=== PATIENT | male | born 2000 | race Caucasian/White ===

== ENCOUNTER 2020-07-16 15:09 | Day surgery (SDC) | payer SELFPAY ==
[2020-07-16] MEDS ORDERED: Sodium Chloride 0.9% 10 ML Syringe FLUSH PRN (15:37)
[2020-07-16] MEDS ORDERED: cefOXitin 2 GM in Premix Bag 1 BAG IV SCH (15:37)
[2020-07-16] MEDS ORDERED: Sodium Chloride 0.9% 10 ML SDV IV PRN (15:37)
[2020-07-16] MEDS ORDERED: Sodium Chloride 0.9% 2.5 ML Syringe FLUSH PRN (15:37)
[2020-07-16] MEDS ORDERED: Lactated Ringers 1,000 ML IV SCH (15:45)
[2020-07-16] MEDS ORDERED: Propofol 200 MG/20 ML SDV ONE (15:45)
[2020-07-16] MEDS ORDERED: Midazolam 1 MG/ML 2 ML SDV ONE (15:45)
[2020-07-16] MEDS ORDERED: fentaNYL 100 MCG/2 ML SDV ONE (15:45)
[2020-07-16] MEDS ORDERED: cefOXitin 1 GM Vial ONE (15:58)
[2020-07-16] MEDS ORDERED: Sodium Chloride 0.9% 20 ML ONE (15:58)
--- NOTE | 2020-07-16 16:46 | PCM.OPNOTE ---
- General Post-Op/Procedure Note Date of Surgery/Procedure: 07/16/20 Operative Procedure(s): Incision and drainage left anterior perianal abscess Findings: 3 x 2 x 1 cm perianal abscess on the left anterior anoderm. No evidence of a fistula Pre Op Diagnosis: Perianal abscess Post-Op Diagnosis: same Anesthesia Technique: General LMA Primary Surgeon: Genia Morales Output, Urine Amount: 800 EBL in mLs: 5 Condition: Good
--- NOTE | 2020-07-16 16:56 | PCM.PREANE ---
Preanesthetic Assessment - Anesthesia/Transfusion/Family Hx Anesthesia History: Prior Anesthesia Without Reaction Family History of Anesthesia Reaction: No Transfusion History: No Prior Transfusion(s) - Physical Assessment NPO Status Date: 07/16/20 NPO Status Time: 00:05 Vital Signs: Last Vital Signs Temp 36.7 C 07/16/20 15:05 Pulse 85 07/16/20 15:05 Resp 16 07/16/20 15:05 BP 142/74 H 07/16/20 15:05 Pulse Ox 96 07/16/20 15:05 Height: 1.68 m Weight: 100.698 kg ASA Class: 1 - Lab Values: Laboratory Last Values SARS-CoV-2 RNA (LEXY) NEGATIVE (NEGATIVE) 07/16/20 15:20 - Allergies Allergies/Adverse Reactions: Allergies Allergy/AdvReac Type Severity Reaction Status Date / Time No Known Allergies Allergy Verified 07/16/20 15:37 - Acknowledgements Anesthesia Type Planned: General Anesthesia Pt an Appropriate Candidate for the Planned Anesthesia: Yes Alternatives and Risks of Anesthesia Discussed w Pt/Guardian: Yes Pt/Guardian Understands and Agrees with Anesthesia Plan: Yes PreAnesthesia Questionnaire Gastrointestinal History: Reports: GERD Endocrine/Metabolic History: Reports: Obesity/BMI 30+ - Past Surgical History Head Surgeries/Procedures: Reports: None HEENT Surgical History: Reports: Tonsillectomy, Other (See Below) Other HEENT Surgeries/Procedures: Left Tympanoplasty - SUBSTANCE USE Tobacco Use Status *Q: Current Every Day Tobacco User Tobacco Use Within Last Twelve Months: Snuff/Dip Recreational Drug Use History: No - HOME MEDS Home Medications: Home Meds Famotidine [Pepcid AC] 20 mg PO DAILY PRN 07/16/20 [History] metroNIDAZOLE [Flagyl] 500 mg PO Q8H #15 tab 07/16/20 [Rx] - CURRENT (IN HOUSE) MEDS Current Meds: Current Medications Lactated Ringer's (Ringers, Lactated) 1,000 mls @ 125 mls/hr IV ASDIRECTED KEAGAN Last Admin: 07/16/20 16:09 Dose: 125 mls/hr Documented by: Cefoxitin Sodium 2 gm/ Premix 50 mls @ 100 mls/hr IV ONCALL KEAGAN Sodium Chloride (Sodium Chloride 0.9% 10 Ml Syringe) 10 ml FLUSH ASDIRECTED PRN PRN Reason: Keep Vein Open Sodium Chloride (Sodium Chloride 0.9% 2.5 Ml Syringe) 2.5 ml FLUSH ASDIRECTED PRN PRN Reason: Keep Vein Open Sodium Chloride (Sodium Chloride 0.9% 10 Ml Sdv) 10 ml IV ASDIRECTED PRN PRN Reason: IV Use Discontinued Medications Cefoxitin Sodium (Cefoxitin 1 Gm Vial) Confirm Administered Dose 2 gm .ROUTE .STK-MED ONE Stop: 07/16/20 15:59 Fentanyl (Fentanyl 100 Mcg/2 Ml Sdv) Confirm Administered Dose 100 mcg .ROUTE .STK-MED ONE Stop: 07/16/20 15:46 Sodium Chloride (Normal Saline) Confirm Administered Dose 20 mls @ as directed .ROUTE .STK-MED ONE Stop: 07/16/20 15:59 Midazolam HCl (Midazolam 1 Mg/Ml 2 Ml Sdv) Confirm Administered Dose 2 mg .ROUTE .STK-MED ONE Stop: 07/16/20 15:46 Propofol (Propofol 200 Mg/20 Ml Sdv) Confirm Administered Dose 200 mg .ROUTE .STK-MED ONE Stop: 07/16/20 15:46
--- NOTE | 2020-07-16 17:16 | PCM.POSTAN ---
POST ANESTHESIA ASSESSMENT - MENTAL STATUS Mental Status: Alert - VITAL SIGNS Vital Signs: Last Vital Signs Temp 36.2 C 07/16/20 16:45 Pulse 79 07/16/20 17:05 Resp 19 07/16/20 17:05 BP 116/65 07/16/20 17:05 Pulse Ox 96 07/16/20 17:05 - RESPIRATORY Respiratory Status: Respiratory Rate WNL - CARDIOVASCULAR CV Status: Pulse Rate WNL - GASTROINTESTINAL GI Status: No Symptoms - POST OP HYDRATION Hydration Status: Adequate & Stable
--- NOTE | 2020-07-16 17:21 | PCM48HPAN ---
Post Anesthesia Note - EVALUATION WITHIN 48HRS OF ANESTHETIC Vital Signs in Normal Range: Yes Patient Participated in Evaluation: Yes Respiratory Function Stable: Yes Airway Patent: Yes Cardiovascular Function Stable: Yes Hydration Status Stable: Yes Pain Control Satisfactory: Yes Nausea and Vomiting Control Satisfactory: Yes Mental Status Recovered: Yes Vital Signs: Last Vital Signs Temp 36.2 C 07/16/20 16:45 Pulse 79 07/16/20 17:05 Resp 19 07/16/20 17:05 BP 116/65 07/16/20 17:05 Pulse Ox 96 07/16/20 17:05
--- NOTE | 2020-07-16 19:46 | OR ---
SURGEON: GENIA MORALES MD DATE OF PROCEDURE: 07/16/2020 PREOPERATIVE DIAGNOSIS: Perianal abscess. POSTOPERATIVE DIAGNOSIS: Perianal abscess. PROCEDURE PERFORMED: Incision and drainage of left anterior perianal abscess. PRIMARY SURGEON: Genia Morales MD ANESTHESIA: General LMA. FLUIDS: 800 mL of crystalloid. ESTIMATED BLOOD LOSS: 5 mL. FINDINGS: 3 x 2 x 1 cm perianal abscess in the left anterior anoderm. No evidence of a fistula. COMPLICATIONS: None. INDICATIONS: The patient is a 20-year-old male who presented to my clinic this afternoon with perianal pain, swelling, and warmth. Examination revealed a large fluctuant left anterior perianal abscess. I explained the pathophysiology of perianal abscesses to the patient. I explained the need for incision and drainage. I discussed the possibility of a fistula and the treatment should I find one. We discussed the risks including bleeding, infection, or damage to surrounding structures. The patient verbalized understanding and wishes to proceed. PROCEDURE IN DETAIL: The patient was brought into the OR and placed on the OR table in supine position. A time-out was completed verifying the patient's name, age, date of , allergies, and procedure to be performed. General LMA anesthesia was induced. The patient was then placed in a left lateral decubitus position. The buttock was then prepped and draped in usual standard fashion. A digital rectal exam was performed. I could feel some fluctuance in the left anterior anal canal, but no evidence of a fistula. A bivalve anoscope was inserted in the rectum, again I saw no evidence of purulent drainage inside the anal canal. In the area of maximal fluctuance, I used a 15 blade to make a 1.5 cm incision along the skin lines. I immediately encountered a large amount of purulent material. This was suctioned out. I then explored the wound cavity and took down the loculations with a hemostat. I then used a fistula probe to track toward the anal canal. There was no evidence of a perianal fistula. The abscess did track toward the midline. Again, I saw no evidence of a midline fistula. The wound was then copiously irrigated with normal saline. It was measured and found to be 3 x 2 x 1 cm in size. A 1-inch iodoform packing strip was then placed inside the wound and 4 x 4 gauze placed on the outside. These were then secured in place using mesh underwear. The patient tolerated the procedure well, was extubated and taken to PACU in stable condition. All counts were complete and correct at the end of the case. THERESA DURAN /[id number]
== END 2020-07-16 21:30 | disposition home or self-care (01) ==
LOC: MW.SDS 15:09 → MW.MS 17:25 → MW.SDS 21:30
PROVIDERS: ATTEND Surgery
DX: K61.0 Anal abscess (principal); Z01.812 Encounter for preprocedural laboratory examination; Z20.822 Contact with and (suspected) exposure to COVID-19; E66.9 Obesity, unspecified; Z68.35 Body mass index [BMI] 35.0-35.9, adult; F17.210 Nicotine dependence, cigarettes, uncomplicated; Z91.018 Allergy to other foods; Z91.09 Other allergy status, other than to drugs and biological substances; Z98.890 Other specified postprocedural states
CPT/HCPCS: 46050; 87635; J0694; J2250; J2704; J3010; J7120; U0002

== ENCOUNTER 2021-03-22 12:16 | Day surgery (SDC) | payer SELFPAY ==
--- NOTE | 2021-03-22 10:35 | PCM.PREANE ---
Preanesthetic Assessment - Anesthesia/Transfusion/Family Hx Anesthesia History: Prior Anesthesia Without Reaction Transfusion History: No Prior Transfusion(s) - Review of Systems General: No Symptoms Pulmonary: No Symptoms Cardiovascular: No Symptoms Gastrointestinal: No Symptoms Neurological: No Symptoms Other: Reports: None - Physical Assessment NPO Status Date: 03/22/21 NPO Status Time: 00:00 Height: 5 ft 6 in Weight: 240 lb Mental Status: Alert & Oriented x3 Airway Class: Mallampati = 2 Dentition: Reports: Normal Dentition ROM/Head Extension: Full Lungs: Clear to Auscultation, Normal Respiratory Effort Cardiovascular: Regular Rate, Regular Rhythm - Allergies Allergies/Adverse Reactions: Allergies Allergy/AdvReac Type Severity Reaction Status Date / Time animal dander Allergy itchy/watery Verified 03/17/21 08:36 eyes/sneezing minor Allergy Stomach Verified 03/17/21 08:36 Upset bee venom protein (honey bee) Allergy Swelling Verified 03/17/21 08:36 cedarwood Allergy watery Verified 03/17/21 08:38 eyes/sneezing/sob grass/molds Allergy itchy/watery Uncoded 03/17/21 08:36 eyes, sneezing - Acknowledgements Anesthesia Type Planned: General Anesthesia Pt an Appropriate Candidate for the Planned Anesthesia: Yes Alternatives and Risks of Anesthesia Discussed w Pt/Guardian: Yes Pt/Guardian Understands and Agrees with Anesthesia Plan: Yes PreAnesthesia Questionnaire HEENT History: Reports: Allergic Rhinitis Cardiovascular History: Reports: None Respiratory History: Reports: None Gastrointestinal History: Reports: GERD Genitourinary History: Reports: None Musculoskeletal History: Reports: None Neurological History: Reports: None Psychiatric History: Reports: None Endocrine/Metabolic History: Reports: Obesity/BMI 30+ Hematologic History: Reports: None Immunologic History: Reports: None Oncologic (Cancer) History: Reports: None Dermatologic History: Reports: None - Past Surgical History Head Surgeries/Procedures: Reports: None HEENT Surgical History: Reports: Tonsillectomy, Other (See Below) Other HEENT Surgeries/Procedures: Left Tympanoplasty Cardiovascular Surgical History: Reports: None Respiratory Surgical History: Reports: None GI Surgical History: Reports: Other (See Below) Other GI Surgeries/Procedures: previous I&D of pilonidal cyst Male Surgical History: Reports: None Endocrine Surgical History: Reports: None Neurological Surgical History: Reports: None Musculoskeletal Surgical History: Reports: None Oncologic Surgical History: Reports: None Dermatological Surgical History: Reports: None - SUBSTANCE USE Tobacco Use Status *Q: Light Tobacco User Tobacco Use Within Last Twelve Months: Vaping Recreational Drug Type: Reports: Marijuana/Hashish Recreational Drug Last Use: smokes 1 to 2 times daily, instructed to stop 5 to 7 days prior to surgery - HOME MEDS Home Medications: Home Meds Famotidine [Pepcid] 1 tab PO ASDIRECTED PRN 03/17/21 [History] - CURRENT (IN HOUSE) MEDS Current Meds: Current Medications Albuterol (Albuterol 0.083% 2.5 Mg/3 Ml Neb Soln) 2.5 mg NEB ONETIME PRN PRN Reason: Wheezing Droperidol (Droperidol 5 Mg/2 Ml Sdv) 0.625 mg IVPUSH ONETIME PRN PRN Reason: Nausea/Vomiting Fentanyl (Fentanyl 100 Mcg/2 Ml Sdv) 50 mcg IVPUSH Q5M PRN PRN Reason: Pain (mild 1-3) Hydromorphone HCl (Hydromorphone 1 Mg/Ml Syringe) 1 mg IVPUSH Q10M PRN PRN Reason: Pain (moderate 4-6) Lactated Ringer's (Ringers, Lactated) 1,000 mls @ 125 mls/hr IV ASDIRECTED KEAGAN Metoclopramide HCl (Metoclopramide 10 Mg/2 Ml Sdv) 10 mg IVPUSH ONETIME PRN PRN Reason: Nausea/Vomiting Morphine Sulfate (Morphine 2 Mg/Ml Syringe) 2 mg IVPUSH Q10M PRN PRN Reason: Pain (severe 7-10) Naloxone HCl (Naloxone 0.4 Mg/Ml Sdv) 0.1 mg IVPUSH ASDIRECTED PRN PRN Reason: Respiratory Depression Ondansetron HCl (Ondansetron 4 Mg/2 Ml Sdv) 4 mg IVPUSH ONETIME PRN PRN Reason: Nausea/Vomiting Sodium Chloride (Sodium Chloride 0.9% 2.5 Ml Syringe) 2.5 ml FLUSH ASDIRECTED PRN PRN Reason: Keep Vein Open Sodium Chloride (Sodium Chloride 0.9% 20 Ml Sdv) 10 ml IV ASDIRECTED PRN PRN Reason: IV Use Sodium Chloride (Sodium Chloride 0.9% 10 Ml Syringe) 10 ml FLUSH ASDIRECTED PRN PRN Reason: Keep Vein Open Discontinued Medications Cefazolin Sodium/Dextrose 2 gm (/ Premix) 50 mls @ 100 mls/hr IV ONETIME ONE Stop: 03/22/21 09:55
[~2021-03-22 12:16] MED LIST: Albuterol 0.083% 2.5 MG/3 ML Neb Soln NEB PRN; HYDROmorphone 1 MG/ML Syringe IVPUSH PRN; Lactated Ringers 1,000 ML IV SCH; Metoclopramide 10 MG/2 ML SDV IVPUSH PRN; Morphine 2 MG/ML SYRINGE IVPUSH PRN; Naloxone 0.4 MG/ML SDV IVPUSH PRN; Ondansetron 4 MG/2 ML SDV IVPUSH PRN; Sodium Chloride 0.9% 10 ML Syringe FLUSH PRN; Sodium Chloride 0.9% 2.5 ML Syringe FLUSH PRN; Sodium Chloride 0.9% 20 ML SDV IV PRN; ceFAZolin 2 GM in Premix Bag 1 BAG IV ONE; fentaNYL 100 MCG/2 ML SDV IVPUSH PRN
[2021-03-22] MEDS ORDERED: Propofol 200 MG/20 ML SDV ONE (12:36)
[2021-03-22] MEDS ORDERED: Midazolam 1 MG/ML 2 ML SDV ONE (12:36)
[2021-03-22] MEDS ORDERED: fentaNYL 100 MCG/2 ML SDV ONE ×2 (12:36→13:15)
[2021-03-22] MEDS ORDERED: Lidocaine 2% 5 ML SDV ONE (12:36)
[2021-03-22] MEDS ORDERED: Ondansetron 4 MG/2 ML SDV ONE (12:36)
[2021-03-22] MEDS ORDERED: Dexamethasone 4 MG/ML 5 ML MDV ONE (12:36)
[2021-03-22] MEDS ORDERED: Bupivacaine 0.5% 30 ML SDV ONE (12:51)
[2021-03-22] MEDS ORDERED: Ketorolac 30 MG/ML SDV ONE (13:30)
--- NOTE | 2021-03-22 13:53 | PCM.POSTAN ---
POST ANESTHESIA ASSESSMENT - MENTAL STATUS Mental Status: Alert, Oriented - VITAL SIGNS Vital Signs: Last Vital Signs Temp 96.8 F L 03/22/21 12:35 Pulse 77 03/22/21 12:35 Resp 16 03/22/21 12:35 BP 138/78 03/22/21 12:35 Pulse Ox 98 03/22/21 12:35 - RESPIRATORY Respiratory Status: Respiratory Rate WNL, Airway Patent, O2 Saturation Stable - CARDIOVASCULAR CV Status: Pulse Rate WNL, Blood Pressure Stable - GASTROINTESTINAL GI Status: No Symptoms - POST OP HYDRATION Hydration Status: Adequate & Stable
--- NOTE | 2021-03-22 13:54 | PCM48HPAN ---
Post Anesthesia Note - EVALUATION WITHIN 48HRS OF ANESTHETIC Vital Signs in Normal Range: Yes Patient Participated in Evaluation: Yes Respiratory Function Stable: Yes Airway Patent: Yes Cardiovascular Function Stable: Yes Hydration Status Stable: Yes Pain Control Satisfactory: Yes Nausea and Vomiting Control Satisfactory: Yes Mental Status Recovered: Yes Vital Signs: Last Vital Signs Temp 96.8 F L 03/22/21 12:35 Pulse 77 03/22/21 12:35 Resp 16 03/22/21 12:35 BP 138/78 03/22/21 12:35 Pulse Ox 98 03/22/21 12:35
--- NOTE | 2021-03-22 13:57 | PCM.OPNOTE ---
- General Post-Op/Procedure Note Date of Surgery/Procedure: 03/22/21 Operative Procedure(s): Excision pilonidal cyst Findings: Pilonidal cyst excision 3 x 1 x 2 cm and 2.5 x 2 x 0.5 cm pieces Pre Op Diagnosis: Pilonidal cyst Post-Op Diagnosis: same Anesthesia Technique: BRENNAN Primary Surgeon: Genia Morales Condition: Good
--- NOTE | 2021-03-22 14:06 | PCM.OPNOTE ---
- General Post-Op/Procedure Note Date of Surgery/Procedure: 03/22/21 Operative Procedure(s): Excision pilonidal cyst Condition: Good
[2021-03-22] MEDS ORDERED: Acetaminophen/oxyCODONE 325-5 MG Tab PO ONE (14:42)
[2021-03-22] MEDS ORDERED: Acetaminophen/oxyCODONE 325-5 MG Tab ONE ×2 (14:44→14:52)
--- NOTE | 2021-03-23 09:03 | OR ---
SURGEON: GENIA MORALES MD DATE OF PROCEDURE: 03/22/2021 PREOPERATIVE DIAGNOSIS: Pilonidal cyst. POSTOPERATIVE DIAGNOSIS: Pilonidal cyst. PROCEDURE PERFORMED: Pilonidal cyst excision. PRIMARY SURGEON: Genia Morales MD ANESTHESIA: General LMA. FLUIDS: 900 mL crystalloid. ESTIMATED BLOOD LOSS: 10 mL. FINDINGS: Pilonidal cyst along the blanka cleft. 3 x 1 x 2 cm and 2 x 2.5 x 0.5 cm pieces of tissue excised. COMPLICATIONS: None. INDICATIONS: The patient is a 20-year-old male who comes to clinic with complaints of pilonidal cyst which is causing recurrent abscesses and infections. The decision was made to proceed to the operating room to perform an excision of the pilonidal cyst along the cleft. I explained the procedure, expected perioperative course, the need for dressing changes afterwards, and the risks including bleeding, infection, or damage to surrounding structures. He verbalized understanding and wishes to proceed. PROCEDURE IN DETAIL: The patient was brought in to the OR and placed on the OR table in supine position. A time-out was completed verifying the patient's name, age, date of , allergies, and procedure to be performed. General LMA anesthesia was induced. Once his LMA was secured, he was placed in a left lateral decubitus position making sure to appropriately pad and protect all bony prominences. The lower back and upper buttock were then prepped and draped in usual standard fashion. I anesthetized around the pilonidal cyst with 0.5% Marcaine plain. An elliptical incision was made around the previous incision site as well as the pilonidal cyst. A 15-blade was used to make the skin incision and cautery was used to dissect down to the level of subcutaneous fat. I dissected down to the fascia. Once I reached there, I noticed an abscess cavity that was located more superiorly. I extended my incision on the skin and re-excised this piece of tissue. The first piece of tissue that I removed was labeled as pilonidal cyst. It was 3 x 1 x 2 cm in size. The second piece of tissue I removed was labeled as pilonidal cyst as well but measured 2 x 2.5 x 0.5 cm in size. These were both sent to Pathology. Electrocautery was used to achieve hemostasis. I attempted to marsupialize the wound edges using a running locking stitch, but this was placing too much tension on the skin. Instead, I performed interrupted sutures around the edges of the wound to marsupialize it down to the fascia. This was performed using 2-0 chromic suture. The wound was then irrigated with normal saline. It was then packed with wet-to-dry dressing which was secured in place using tape. The patient tolerated the procedure well, was extubated, and taken to PACU in stable condition. All counts were complete and correct at the end of the case. THERESA / RENEE /[id number]
== END 2021-03-22 15:15 | disposition home or self-care (01) ==
LOC: MW.SDS 12:16
PROVIDERS: ATTEND Surgery
DX: L05.01 Pilonidal cyst with abscess (principal); F17.290 Nicotine dependence, other tobacco product, uncomplicated; Z91.030 Bee allergy status; Z91.018 Allergy to other foods; Z98.890 Other specified postprocedural states
CPT/HCPCS: 11771; A9270; J0690; J1100; J1885; J2250; J2405; J2704; J3010; J3490; J7120; 00300